=== PATIENT | female | born 2000 | race Caucasian/White ===

== ENCOUNTER 2024-07-12 17:01 | Outpatient (CLI) | payer OTHER ==
[~2024-07-12] VITALS: Ht 162.6 cm; Wt 90.0 kg
[~2024-07-12 17:01] MED LIST: ONDA-282 PO
[2024-07-12 17:20] VITALS: BP 108/69
[2024-07-12] MEDS ORDERED: ASPI81CH33 PO (17:42)
[2024-07-12] MEDS ORDERED: LIDO1ADH10 TP (17:42)
[2024-07-12] MEDS ORDERED: PRENTAB9 PO (17:42)
[2024-07-12] MEDS ORDERED: ACET-907 PO (17:42)
[2024-07-12] MEDS ORDERED: ZOLO25TA PO (17:42)
[2024-07-12] MEDS ORDERED: UNIS25TA3 PO (17:42)
[2024-07-12 20:46] LABS: Trichomonas vaginalis (AMP) NOT DETECTED (NEGATIVE)
[2024-07-12 21:10] LABS: GC DNA AMPLIFICATION NEGATIVE (NEGATIVE)
== END 2024-07-12 21:30 | disposition home or self-care (01) ==
LOC: M LDO 17:01
PROVIDERS: ATTEND Advanced Practice Midwife
DX: O26.852 Spotting complicating pregnancy, second trimester (principal); O26.23 Pregnancy care for patient with recurrent pregnancy loss, third trimester; Z3A.27 27 weeks gestation of pregnancy
CPT/HCPCS: 59025; 87661; 87810; 87850; G0463

== ENCOUNTER 2024-07-20 10:36 | Emergency (ER) | payer OTHER ==
[~2024-07-20 10:36] MED LIST changes: +ACET-907 PO; +ASPI81CH33 PO; +LIDO1ADH10 TP; +PRENTAB9 PO; +UNIS25TA3 PO; +ZOLO25TA PO
[2024-07-20 11:21] LABS: BASO % 0.3 % (0.0-1.0); EOS % 0.6 % (0.0-3.0); HEMATOCRIT 34.3 % (36.0-47.0); HEMOGLOBIN 11.2 g/dl (12.0-15.5); LYMPH # 1.4 10^3/uL (1.5-5.0); LYMPH % 21.4 % (24.0-44.0); MEAN CORPUSCULAR HGB CONC 32.7 g/dl (32.0-36.5); MEAN CORPUSCULAR VOLUME 82.7 fl (80.0-96.0); MONO # 0.5 10^3/uL (0.0-0.8); MONO % 7.3 % (2.0-8.0); NEUTROPHILS # 4.6 10^3/uL (1.5-8.5); NEUTROPHILS % 70.1 % (36.0-66.0); PLATELET COUNT, AUTOMATED 141 10^3/uL (150-450); RED BLOOD COUNT 4.15 10^6/uL (4.00-5.40); WHITE BLOOD COUNT 6.5 10^3/uL (4.0-10.0)
[2024-07-20 11:35] LABS: INR 0.95; PARTIAL THROMBOPLASTIN TIME 26.9 SECONDS (24.8-34.2)
[2024-07-20 11:46] LABS: LIPASE 32 U/L (12-53)
[2024-07-20 11:47] LABS: ALBUMIN 3.2 G/DL (3.2-5.2); ALKALINE PHOSPHATASE 49 U/L (35-104); ALT/SGPT 14 U/L (7.0-40); AMYLASE 69 U/L (30-118); AST/SGOT 14 U/L (<34); BILIRUBIN,TOTAL 0.3 MG/DL (0.3-1.2); BLOOD UREA NITROGEN 7 MG/DL (9-23); CALCIUM LEVEL 8.6 MG/DL (8.5-10.1); CARBON DIOXIDE LEVEL 22 MMOL/L (20-31); CHLORIDE LEVEL 106 MMOL/L (98-107); CREATININE FOR GFR 0.47 MG/DL (0.55-1.30); GLOMERULAR FILTRATION RATE > 60.0 (>60); GLUCOSE, FASTING 78 MG/DL (60-100); POTASSIUM SERUM 4.1 MMOL/L (3.5-5.1); SODIUM LEVEL 139 MMOL/L (136-145); TOTAL PROTEIN 6.5 G/DL (5.7-8.2)
[2024-07-20 12:30] VITALS: BP 104/57; TEMP 97.5; O2SAT 97
== END 2024-07-20 12:40 | disposition admitted as inpatient to this hospital (09) ==
LOC: EDBD 10:36 → M ED 10:36
DX: S23.3XXA Sprain of ligaments of thoracic spine, initial encounter (principal); S33.5XXA Sprain of ligaments of lumbar spine, initial encounter; Y92.9 Unspecified place or not applicable; Y93.9 Activity, unspecified; Y99.9 Unspecified external cause status; V49.50XA Passenger injured in collision with unspecified motor vehicles in traffic accident, initial encounter; Z3A.28 28 weeks gestation of pregnancy; Z88.1 Allergy status to other antibiotic agents; Z79.1 Long term (current) use of non-steroidal anti-inflammatories (NSAID); Z79.810 Long term (current) use of selective estrogen receptor modulators (SERMs); Z79.899 Other long term (current) drug therapy
CPT/HCPCS: 36415; 59025; 70450; 72072; 72110; 72125; 76815; 76819; 76820; 80053; 82150; 83690; 85025; 85384; 85460; 85610; 85730; 86850; 86900; 86901; 99284; G0463

== ENCOUNTER 2024-07-20 12:37 | Outpatient (CLI) | payer OTHER ==
[~2024-07-20] VITALS: Ht 162.6 cm; Wt 89.2 kg
[2024-07-20 12:56] VITALS: BP 99/59
[2024-07-20] MEDS: ACETAMINOPHEN 500 MG TAB PO ONE (14:06)
== END 2024-07-20 17:30 | disposition home or self-care (01) ==
LOC: M LDO 12:37
PROVIDERS: ATTEND Obstetrics & Gynecology
DX: Z04.1 Encounter for examination and observation following transport accident (principal); Z3A.28 28 weeks gestation of pregnancy; Y92.9 Unspecified place or not applicable; Y93.9 Activity, unspecified; Y99.9 Unspecified external cause status
CPT/HCPCS: 59025; 76815; 76819; 76820; G0463

== ENCOUNTER 2024-07-20 21:37 | Outpatient (CLI) | payer OTHER ==
[~2024-07-20] VITALS: Ht 162.6 cm; Wt 88.6 kg
[2024-07-20 21:54] VITALS: BP 106/63
[2024-07-20 22:49] LABS: BASO % 0.6 % (0.0-1.0); EOS # 0.1 10^3/uL (0.0-0.5); EOS % 0.8 % (0.0-3.0); HEMATOCRIT 33.9 % (36.0-47.0); HEMOGLOBIN 11.2 g/dl (12.0-15.5); LYMPH # 1.8 10^3/uL (1.5-5.0); LYMPH % 25.2 % (24.0-44.0); MEAN CORPUSCULAR HEMOGLOBIN 27.7 pg (27.0-33.0); MEAN CORPUSCULAR VOLUME 83.7 fl (80.0-96.0); MONO # 0.5 10^3/uL (0.0-0.8); MONO % 7.5 % (2.0-8.0); NEUTROPHILS # 4.7 10^3/uL (1.5-8.5); NEUTROPHILS % 65.5 % (36.0-66.0); PLATELET COUNT, AUTOMATED 142 10^3/uL (150-450); RED BLOOD COUNT 4.05 10^6/uL (4.00-5.40); WHITE BLOOD COUNT 7.1 10^3/uL (4.0-10.0)
[2024-07-20] MEDS: ACETAMINOPHEN 500 MG TAB PO PRN (22:51)
[2024-07-20 23:02] LABS: INR 1.05; PARTIAL THROMBOPLASTIN TIME 28.5 SECONDS (24.8-34.2)
[2024-07-20] MEDS: diphenhydrAMINE 50MG CAP PO ONE (23:20)
[2024-07-20 23:22] VITALS: BP 108/55
== END 2024-07-21 05:35 | disposition home or self-care (01) ==
LOC: M LDO 21:37
PROVIDERS: ATTEND Obstetrics & Gynecology
DX: Z04.1 Encounter for examination and observation following transport accident (principal); O09.893 Supervision of other high risk pregnancies, third trimester; O26.893 Other specified pregnancy related conditions, third trimester; R51.9 Headache, unspecified; Z3A.28 28 weeks gestation of pregnancy; Y92.9 Unspecified place or not applicable; Y93.9 Activity, unspecified; Y99.9 Unspecified external cause status
CPT/HCPCS: 36415; 59025; 85025; 85384; 85460; 85610; 85730; G0463

== ENCOUNTER → 2024-09-07 | Outpatient (REF) | payer OTHER | LOC: M PLALAB 07:32 | PROVIDERS: ATTEND Obstetrics & Gynecology | DX: Z36.89 Encounter for other specified antenatal screening (principal); Z3A.35 35 weeks gestation of pregnancy ==

== ENCOUNTER → 2024-09-12 | Outpatient (CLI) | payer OTHER | LOC: M RAD 11:20 | PROVIDERS: ATTEND Advanced Practice Midwife | DX: O36.8190 Decreased fetal movements, unspecified trimester, not applicable or unspecified (principal) ==

== ENCOUNTER → 2024-09-21 | Outpatient (CLI) | payer OTHER ==
[2024-09-21 16:03] LABS: FERRITIN 2.3 NG/ML (7.3-270.7)
== END ==
LOC: M PLALAB 14:01
PROVIDERS: ATTEND Nurse Practitioner Family
DX: R68.89 Other general symptoms and signs (principal)

== ENCOUNTER 2024-09-25 09:28 | Outpatient (CLI) | payer OTHER ==
[~2024-09-25] VITALS: Ht 162.6 cm; Wt 94.9 kg
[2024-09-25 09:48] VITALS: BP 106/60
[2024-09-25] MEDS ORDERED: HOME MED LIST COMPLETE! XX SCH (09:50)
== END 2024-09-25 11:59 | disposition home or self-care (01) ==
LOC: M LDO 09:28
PROVIDERS: ATTEND Advanced Practice Midwife
DX: O36.8130 Decreased fetal movements, third trimester, not applicable or unspecified (principal); O99.343 Other mental disorders complicating pregnancy, third trimester; F32.A Depression, unspecified; Z3A.38 38 weeks gestation of pregnancy; Z87.81 Personal history of (healed) traumatic fracture
CPT/HCPCS: 59025; 76815; 76819; 76820; G0463

== ENCOUNTER 2024-10-01 09:23 | Inpatient (IN) | payer OTHER ==
[2024-10-01] VITALS (10 sets, daily range): BP systolic 91–114; BP diastolic 56–72
[~2024-10-01] VITALS: Ht 162.6 cm; Wt 94.9 kg
[2024-10-01] MEDS ORDERED: OXYTOCIN INJ 10UNITS/ML 1ML VIAL IV PRN (09:40)
[2024-10-01] MEDS ORDERED: OXYTOCIN DRIP 30 UNITS in IV 1 EA IV PRN ×3 (09:40)
[2024-10-01] MEDS ORDERED: METHYLERGONOVINE MALEATE 0.2MG/ML 1ML VIAL IM PRN (09:40)
[2024-10-01] MEDS ORDERED: LIDOCAINE 1% MDV 20ML VIAL INFIL PRN (09:40)
[2024-10-01] MEDS ORDERED: CARBOPROST TROMETHAMINE 250 MCG/ML AMP IM PRN (09:40)
[2024-10-01] MEDS ORDERED: OXYTOCIN INJ 10UNITS/ML 1ML VIAL IM PRN (09:40)
[2024-10-01] MEDS ORDERED: ACET500P3 PO (09:44)
[2024-10-01] MEDS ORDERED: HOME MED LIST COMPLETE! XX SCH (09:45)
[2024-10-01] MEDS: miSOPROStol 50MCG 1/2 TABLET PO PRN (10:58)
[2024-10-01 10:59] LABS: HEMATOCRIT 34.5 % (36.0-47.0); MEAN CORPUSCULAR HEMOGLOBIN 26.1 pg (27.0-33.0); MEAN CORPUSCULAR HGB CONC 31.9 g/dl (32.0-36.5); MEAN CORPUSCULAR VOLUME 81.9 fl (80.0-96.0); PLATELET COUNT, AUTOMATED 105 10^3/uL (150-450); RED BLOOD COUNT 4.21 10^6/uL (4.00-5.40); WHITE BLOOD COUNT 6.8 10^3/uL (4.0-10.0)
[2024-10-01 11:45] LABS: HIV 1&2 SCREEN NEGATIVE (NEGATIVE)
[2024-10-01 11:53] LABS: HEPATITIS C VIRUS ABY INDEX 0.03 INDEX (<0.8)
[2024-10-02] VITALS (34 sets, daily range): BP systolic 86–142; BP diastolic 50–77; O2SAT 97–98
[2024-10-02] MEDS: ONDANSETRON 4MG 2ML VIAL IV PRN (00:34)
[2024-10-02] MEDS ORDERED: LR 500 ML IV PRN (02:40)
[2024-10-02] MEDS ORDERED: NALOXONE INJ 0.4MG/1ML VIAL IV PRN (02:40)
[2024-10-02] MEDS ORDERED: diphenhydrAMINE 50MG/ML VIAL IV PRN (02:40)
[2024-10-02] MEDS ORDERED: EPIDURAL/PCA KEYS XX PRN (02:40)
[2024-10-02] MEDS ORDERED: ONDANSETRON 4MG 2ML VIAL IV PRN (02:40)
[2024-10-02] MEDS: LR 1,000 ML IV ONE (02:51)
[2024-10-02] MEDS: FENTANYL/ROPIVACAINE/NACL BAG 100 ML EPIDURAL SCH (02:54)
[2024-10-02] MEDS: OXYTOCIN DRIP 30 UNITS in IV 1 EA IV SCH (03:53)
[2024-10-02] MEDS: LR 1,000 ML IV SCH (03:54)
[2024-10-02] MEDS: ePHEDrine SULFATE 25 MG/5 ML(5MG/ML) SYRINGE IVP PRN (04:16)
[2024-10-02] MEDS: TRANEXAMIC ACID INJection 1,000 MG in NS 100 ML IV PRN (08:30)
[2024-10-02] MEDS ORDERED: ACETAMINOPHEN 325 MG TAB PO PRN (08:55)
[2024-10-02] MEDS ORDERED: RHOGAM 300MCG (1500IU) INJ IM SCH (08:55)
[2024-10-02] MEDS ORDERED: IBUPROFEN 600MG TAB PO PRN (08:55)
[2024-10-02] MEDS ORDERED: MOM 30ML SUSPENSION UDC PO PRN (08:55)
[2024-10-02] MEDS: IBUPROFEN 800 MG TAB PO PRN (10:02)
[2024-10-02] MEDS: PRENATAL VITAMINS CHEWABLE TABLET PO SCH (10:02)
[2024-10-02] MEDS: DIBUCAINE 1% OINTMENT 30GM TOP PRN (17:11)
[2024-10-02] MEDS: ANUSOL HC CREAM 30GM TOP PRN (17:11)
[2024-10-02] MEDS: ACETAMINOPHEN 500 MG TAB PO PRN (19:57)
[2024-10-02] MEDS: DOCUSATE SODIUM 100MG CAPSULE PO PRN (20:09)
[2024-10-03 06:00] VITALS: BP 104/54; O2SAT 97
[2024-10-03 09:00] VITALS: BP 104/54; TEMP 98; O2SAT 97
[2024-10-03 18:00] VITALS: BP 125/65; O2SAT 97
[2024-10-04 06:00] VITALS: BP 134/71; O2SAT 99
[2024-10-04] MEDS ORDERED: MEASLES,MUMPS,RUBELLA VACCINE INJ (MMR-II) SC.IMMUN ONE (09:00)
[2024-10-04] MEDS ORDERED: IBUP80TA PO (11:37)
== END 2024-10-04 12:30 | disposition home or self-care (01) | DRG 807 ==
LOC: M LDI 09:23 → M OBS 10-02 10:36
PROVIDERS: ADMIT Specialist; ATTEND Advanced Practice Midwife
PROC: 10E0XZZ Delivery of Products of Conception, External Approach (ICD-10-PCS; principal; 2024-10-02)
PROC: 10907ZC Drainage of Amniotic Fluid, Therapeutic from Products of Conception, Via Natural or Artificial Opening (ICD-10-PCS; 2024-10-02)
PROC: 0HQ9XZZ Repair Perineum Skin, External Approach (ICD-10-PCS; 2024-10-02)
DX: O99.892 Other specified diseases and conditions complicating childbirth (principal); Z37.0 Single live birth; O69.81X0 Labor and delivery complicated by cord around neck, without compression, not applicable or unspecified; Z3A.39 39 weeks gestation of pregnancy; Z87.81 Personal history of (healed) traumatic fracture; O77.0 Labor and delivery complicated by meconium in amniotic fluid; O70.0 First degree perineal laceration during delivery

== ENCOUNTER → 2024-12-22 | Outpatient (CLI) | payer OTHER ==
[~2024-12-22] MED LIST changes: +ACET500P3 PO; +IBUP80TA PO
== END ==
LOC: M WHC 13:41
PROVIDERS: ATTEND Nurse Practitioner Family
DX: N80.9 Endometriosis, unspecified (principal)